=== PATIENT | female | born 1995 | race Caucasian/White ===

== ENCOUNTER 2022-10-19 20:17 | Emergency (ER) | payer MEDICAID ==
[~2022-10-19] VITALS: Ht 165.1 cm; Wt 65.9 kg
[2022-10-19 20:25] VITALS: BP 116/73
[2022-10-19 20:55] LABS: COVID AG,FIA SOURCE NASAL SWAB
[2022-10-19 21:20] LABS: INFLUENZA TYPE A NEGATIVE FOR TYPE A (NEGATIVE); INFLUENZA TYPE B NEGATIVE FOR TYPE B (NEGATIVE)
[2022-10-20] MEDS ORDERED: ALBUTEROL SULFATE HFA 90 MCG/PUFF 8 GM INHALER IH ONE (01:00)
[2022-10-20] MEDS ORDERED: PredniSONE 20 MG TABLET PO ONE (01:00)
[2022-10-20] MEDS ORDERED: PRED-554 PO (01:18)
== END 2022-10-20 01:31 | disposition home or self-care (01) ==
LOC: EMS 20:27
DX: R06.02 Shortness of breath (principal); Z20.822 Contact with and (suspected) exposure to COVID-19
CPT/HCPCS: 99284; 71045; 87426; 87804; 94640; J7512; J3535